=== PATIENT | male | born 1950 | race Caucasian/White ===

== ENCOUNTER 2016-10-07 03:17 | Emergency (ER) | payer MEDICARE ==
[~2016-10-07] VITALS: Ht 175.3 cm; Wt 81.6 kg
[~2016-10-07 03:17] MED LIST: ACET325T9 PO; ALFU10TA3 PO; ALPR1TAB6 PO; AMIT50TA PO; ASPI81TA2 PO; CALC600T4 PO; CHOL400T4 PO; EZET1TAB19 PO; FISH1CAP PO; FLUT16SP NS; FLUT9.9S NS; GLIP5TAB10 PO; GLUC100018 PO; METF500T4 PO; MULT-245 PO; OMEP20CA5 PO; PANT40TA5 PO; RANI150T2 PO; SIMV40TA3 PO; ZOLP5TAB PO
[2016-10-07] MEDS ORDERED: KETOROLAC TROMETHAMINE 30 MG/ML INJ. IV ONE (04:00)
[2016-10-07] MEDS ORDERED: IV NORMAL SALINE 1000ML BAG 1,000 ML IV SCH (04:00)
[2016-10-07] MEDS ORDERED: fentaNYL PF VIAL 100 MCG/2 ML VIAL IV PRN (04:00)
[2016-10-07 04:30] VITALS: BP 147/82
[2016-10-07 04:30] LABS: CALCIUM 9.4 mg/dL (8.5-10.1); GFR 74.5; POTASSIUM 3.7 mmol/L (3.5-5.1)
--- NOTE | 2016-10-07 04:41 | PHYS DOC ---
Past Medical History Past Medical History: Diabetes-Type II, GERD Additional Past Medical Histor: BPH, prostate infection Past Surgical History: Cholecystectomy Additional Past Surgical Histo: hernia Alcohol Use: None Drug Use: None Adult General Chief Complaint Chief Complaint: DIARRHEA HPI HPI Patient is a 66 year old male who presents with bilateral lower abdominal pain that is crampy and diffuse associated with nonbloody diarrhea. States he has multiple episodes of small volume diarrhea. Symptoms started approx 0400 yesterday. Denies f/c, n/v, dysuria, bloody stools. Currently taking cipro for prostate infection, but has prior tolerated cipro without this side effect. Review of Systems Review of Systems Constitutional: Denies fever or chills [] Eyes: Denies change in visual acuity, redness, or eye pain [] HENT: Denies nasal congestion or sore throat [] Respiratory: Denies cough or shortness of breath [] Cardiovascular: No additional information not addressed in HPI [] GI: Denies nausea, vomiting, bloody stools [] : Denies dysuria or hematuria [] Musculoskeletal: Denies back pain or joint pain [] Integument: Denies rash or skin lesions [] Neurologic: Denies headache, focal weakness or sensory changes [] Endocrine: Denies polyuria or polydipsia [] Current Medications Current Medications Current Medications Medications (Trade) Dose Ordered Sig/Devang Start Time Stop Time Status Last Admin Dose Admin Fentanyl Citrate 50 mcg 50 mcg PRN Q15MIN PRN 10/07/16 04:00 10/07/16 05:00 DC Ketorolac Tromethamine (Toradol) 15 mg 1X ONCE 10/07/16 04:00 10/07/16 04:04 DC 10/07/16 04:21 15 MG Sodium Chloride (Iv Sodium Chloride 0.9% 1000ml Bag) 1,000 ml @ 1,000 mls/hr Q1H 10/07/16 04:00 10/07/16 04:59 DC 10/07/16 04:21 1,000 MLS/HR Allergies Allergies Allergies Coded Allergies Type Severity Reaction Last Updated Verified No Known Drug Allergies 06/09/13 No Physical Exam Physical Exam Constitutional: Well developed, well nourished, no acute distress, non-toxic appearance. [] HENT: Normocephalic, atraumatic, bilateral external ears normal, oropharynx moist, nose normal. [] Eyes: PERRLA, EOMI. [] Neck: Normal range of motion, supple. [] Cardiovascular:Heart rate regular rhythm [] Lungs & Thorax: Bilateral breath sounds clear to auscultation [] Abdomen: Bowel sounds normal, soft, mild bilateral lower abdominal tenderness, no guarding or rebound. [] Skin: Warm, dry, no erythema, no rash. [] Back: Normal range of motion. [] Extremities: No tenderness, ROM intact. [] Neurologic: Alert and oriented X 3, normal motor function, normal sensory function, no focal deficits noted. [] Psychologic: Affect normal, judgement normal, mood normal. [] Current Patient Data Vital Signs Vital Signs Date Time Temp Pulse Resp B/P Pulse Ox O2 Delivery O2 Flow Rate FiO2 10/07/16 04:30 62 16 147/82 95 Room Air 10/07/16 03:45 97.7 97.7 Lab Values Laboratory Tests Test 10/07/16 03:45 Sodium Level 138mmol/L (136-145) Potassium Level 3.7mmol/L (3.5-5.1) Chloride Level 103mmol/L (98-107) Carbon Dioxide Level 24mmol/L (21-32) Anion Gap 11 (6-14) Blood Urea Nitrogen 18mg/dL (8-26) Creatinine 1.0mg/dL (0.7-1.3) Estimated GFR (Cockcroft-Gault) 74.5 Glucose Level 192mg/dL (70-99) H Calcium Level 9.4mg/dL (8.5-10.1) Laboratory Tests 10/07/16 03:45 Course & Med Decision Making Course & Med Decision Making Pertinent Labs and Imaging studies reviewed. (See chart for details) Laboratory evaluation is unremarkable. He is feeling better after medications and would like to go home. Return precautions given. He understands and agrees with plan. Dragon Disclaimer Dragon Disclaimer This electronic medical record was generated, in whole or in part, using a voice recognition dictation system. Departure Departure Impression: Primary Impression: Diarrhea Additional Impression: Abdominal pain Disposition: HOME, SELF-CARE Condition: STABLE Referrals: ELLIOTT FRANCE MD (PCP) Patient Instructions: Diet for Diarrhea, Adult Additional Instructions: Take tylenol or ibuprofen as needed for pain. Take Imodium as needed for loose stools. Follow up with your primary care doctor. Return for any concerns. Problem Qualifiers Primary Impression: Diarrhea Diarrhea type: unspecified type Qualified Code: R19.7 - Diarrhea, unspecified Additional Impression: Abdominal pain Abdominal location: lower abdomen, unspecified Qualified Code: R10.30 - Lower abdominal pain, unspecified Sanjana LUJAN MD Oct 07, 2016 04:41
== END 2016-10-07 04:45 | disposition home or self-care (01) ==
LOC: ER 03:17
DX: R10.31 Right lower quadrant pain (principal); R10.32 Left lower quadrant pain; R19.7 Diarrhea, unspecified; E11.9 Type 2 diabetes mellitus without complications; K21.9 Gastro-esophageal reflux disease without esophagitis; N40.0 Benign prostatic hyperplasia without lower urinary tract symptoms; Z90.49 Acquired absence of other specified parts of digestive tract
CPT/HCPCS: 36415; 80048; 96374; 99284; J1885; J7030; 96361

== ENCOUNTER → 2017-01-11 | Outpatient (CLI) | payer MEDICARE ==
[~2017-01-11] MED LIST changes: +ASPI-630 PO; -ASPI81TA2 PO; -CHOL400T4 PO; +CHOL400T55 PO; -EZET1TAB19 PO; +EZET1TAB41 PO
--- NOTE | 2017-01-11 11:24 | KCIC ---
C-SPINE 2 OR 3 VIEWS Clinical Indication: Neck pain with radiculopathy down right arm x2-3 months. Comparison: None. Findings: There is straightening of normal cervical lordosis that may be positional or due to muscle spasm. There is disc space narrowing and degenerative endplate spurring and sclerosis of C6/C7. There is no evidence of acute fracture or acute malalignment. The lateral masses appear symmetric. Superimposition of dentition limits evaluation. There is bilateral bony neural foraminal narrowing at C3/C4, C4/C5, and C5/C6 that is worse on the right. Neural foraminal narrowing on the right at C4/C5 appears to be severe. No prevertebral soft tissue swelling is identified. Lung apices are clear. IMPRESSION: 1. No acute findings. 2. Bony neural foraminal narrowing of C3/C4, C4/C5, and C5/C6. 3. Degenerative spondylosis of C6/C7. Electronically signed by: Elmer Blackwell MD (01/11/2017 11:21 AM) [id number]
== END | disposition home or self-care (01) ==
LOC: KCIC 10:28
PROVIDERS: ATTEND Family Medicine
DX: M47.892 Other spondylosis, cervical region (principal)
CPT/HCPCS: 72050

== ENCOUNTER → 2017-01-20 | Outpatient (CLI) | payer MEDICARE ==
--- NOTE | 2017-01-20 15:44 | KCIC ---
EXAM: Cervical spine MRI without contrast. HISTORY: Neck pain and right upper extremity radiculopathy. TECHNIQUE: Multiplanar, multisequence magnetic resonance imaging of the cervical spine was performed without contrast. COMPARISON: Radiographs dated 01/11/2017. FINDINGS: There is slight reversal of cervical lordosis. There is slight retrolisthesis of C3 on C4 and C4 on C5 and C6 on C7. There is degenerative endplate remodeling and spurring at all levels, described in detail below. There is deformation of the cervical spinal cord at multiple levels due to central canal stenosis, also described below. There is suspected mild congenital narrowing of the cervical central canal. No suspicious osseous lesion is seen. There are few small endplate Schmorl's nodes. The skull base and posterior fossa are unremarkable. At C2-C3, there is a disc bulge with posterior central annular tear. There is moderate right facet arthropathy. There is mild right foraminal stenosis. There is minimal central canal stenosis measuring 9.5 mm in anteroposterior dimension. At C3-C4, there is a broad-based posterior central to left paracentral disc protrusion with slight superior and inferior extrusion superimposed on a disc bulge and endplate osteophytosis. There is left greater than right uncovertebral arthropathy. There is moderate to severe right and severe left foraminal stenosis. There is deformation of the ventral aspect of the spinal cord with moderate to severe central canal stenosis measuring 6.0 mm in anterior posterior dimension. At C4-C5, there is a broad-based posterior central disc protrusion with slight superior and inferior extrusion superimposed on a disc bulge and endplate osteophytosis. There is bilateral uncovertebral arthropathy. There is moderate right and severe left foraminal stenosis. There is deformation of the spinal cord with severe central canal stenosis measuring 5.4 mm in anterior posterior dimension. There is suggestion of focal T2 hyperintensity within the spinal cord at this level on sagittal images. This is not confirmed on axial images and is likely artifactual or due to a tiny focus of myelomalacia. At C5-C6, there is a broad-based right paracentral disc protrusion with slight inferior extrusion and there are bilateral foraminal to extraforaminal disc osteophyte complexes superimposed on a disc bulge and endplate osteophytosis. There is mild bilateral facet arthropathy. There is uncovertebral arthropathy. There is severe bilateral foraminal stenosis. There is deformation of the spinal cord with moderate to severe central canal stenosis measuring 6.8 mm in anterior posterior dimension. At C6-C7, there is a posterior central disc protrusion with slight inferior extrusion superimposed on a disc bulge and endplate osteophytosis. There is mild to moderate bilateral facet arthropathy. There is uncovertebral arthropathy. There is mild right and moderate left foraminal stenosis. There is deformation of the spinal cord with moderate to severe central canal stenosis measuring 6.7 mm in anterior posterior dimension. IMPRESSION: 1. Multilevel degenerative change throughout the cervical spine, described in detail above. This results in significant foraminal and central canal stenosis at the majority of the cervical levels. There may be a focus of myeloma malacia within the cervical spinal cord slightly inferior to C4-C5. 2. 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 Electronically signed by: Michelle Mendez MD (01/20/2017 3:41 PM) [id number]
== END | disposition home or self-care (01) ==
LOC: KCIC MRI 14:29
PROVIDERS: ATTEND Nurse Practitioner Family
DX: M48.02 Spinal stenosis, cervical region (principal); M12.88 Other specific arthropathies, not elsewhere classified, other specified site
CPT/HCPCS: 72141

== ENCOUNTER → 2017-03-15 | Outpatient (CLI) | payer MEDICARE ==
[~2017-03-15] MED LIST changes: +FINA5TAB4 PO; +NAPH15DR56 OU; +NAPR500T4 PO
--- NOTE | 2017-03-15 15:05 | EKG ---
[facility] [address] [place] [id number] Test Date: 2017-03-15 Test Time: 15:03:27 Pat Name: NATE BLANKENSHIP Department: Room: Gender: Management Specialist: : [id number] Requested By: LEONARD SHIN Order Number: [id number] Reading MD: Ok Meza Measurements Intervals [place] Rate: 77 P: 58 OK: 162 QRS: 51 QRSD: 86 T: 49 QT: 360 QTc: 409 Interpretive Statements SINUS RHYTHM QRS(T) CONTOUR ABNORMALITY CONSIDER ANTEROSEPTAL MYOCARDIAL DAMAGE POSSIBLY ABNORMAL ECG Electronically Signed On 03-18-2017 9:29:38 CDT by Ok Meza
[2017-03-15 15:21] LABS: BASO % 1 % (0-3); EOS % 1 % (0-3); HEMATOCRIT 47.9 % (39.0-53.0); HEMOGLOBIN 16.4 g/dL (13.0-17.5); LYMPH # 1.6 x10^3/uL (1.0-4.8); LYMPH % 19 % (24-48); MEAN CORPUSCULAR HEMOGLOBIN 29 pg (25-35); MEAN CORPUSCULAR HGB CONC 34 g/dL (31-37); MEAN CORPUSCULAR VOLUME 86 fL (79-100); MONO % 11 % (0-9); NEUT % 69 % (31-73); PLATELET COUNT 172 x10^3/uL (140-400); RED BLOOD COUNT 5.58 x10^6/uL (4.30-5.70); RED CELL DISTRIBUTION WIDTH 15.2 % (11.5-14.5); WHITE BLOOD COUNT 8.4 x10^3/uL (4.0-11.0)
[2017-03-15 15:34] LABS: ALBUMIN 3.9 g/dL (3.4-5.0); ALBUMIN/GLOBULIN RATIO 1.1 (1.0-1.7); CALCIUM 9.8 mg/dL (8.5-10.1); CREATININE 1.3 mg/dL (0.7-1.3); GFR 54.9; POTASSIUM 4.2 mmol/L (3.5-5.1); TOTAL BILIRUBIN 1.1 mg/dL (0.2-1.0); TOTAL PROTEIN 7.4 g/dL (6.4-8.2)
== END | disposition home or self-care (01) ==
LOC: SURGPAT 15:21
PROVIDERS: ATTEND Neurological Surgery
DX: Z01.818 Encounter for other preprocedural examination (principal); E78.5 Hyperlipidemia, unspecified; M48.02 Spinal stenosis, cervical region; M54.12 Radiculopathy, cervical region
CPT/HCPCS: 36415; 80053; 83036; 85025; 87641; 93005

== ENCOUNTER → 2017-06-25 | Outpatient (CLI) | payer MEDICARE, OTHER | END | disposition home or self-care (01) | LOC: KCIC 10:11 | DX: M50.323 Other cervical disc degeneration at C6-C7 level (principal); M25.78 Osteophyte, vertebrae; Z98.1 Arthrodesis status; Z98.890 Other specified postprocedural states | CPT/HCPCS: 72040 ==

== ENCOUNTER → 2017-09-14 | Outpatient (CLI) | payer MEDICARE, OTHER | END | disposition home or self-care (01) | LOC: KCIC 14:45 | DX: M19.042 Primary osteoarthritis, left hand (principal); E78.5 Hyperlipidemia, unspecified; E11.9 Type 2 diabetes mellitus without complications | CPT/HCPCS: 73140 ==

== ENCOUNTER → 2018-06-13 | Day surgery (SDC) | payer MEDICARE, OTHER ==
[~2018-06-13] MED LIST changes: +IV RINGERS,LACTATED 1000ML 1,000 ML IV SCH; +METF500T16 PO; -METF500T4 PO; +METH-38 PO; +NAPR-514 PO; -NAPR500T4 PO; +OXYC1TAB7 PO; +PROPOFOL 40 ML IV ONE
[2018-06-13 11:15] VITALS: BP 114/68
== END ==
LOC: ENDOS 08:46
PROVIDERS: ATTEND Internal Medicine Gastroenterology
DX: Z12.11 Encounter for screening for malignant neoplasm of colon (principal); K64.0 First degree hemorrhoids; Z86.010 Personal history of colon polyps
CPT/HCPCS: G0105; J2704; 45378

== ENCOUNTER → 2021-05-07 | Outpatient (CLI) | payer MEDICARE, OTHER ==
[2018-06-13 11:15] VITALS: BP 114/68
[~2021-05-07] MED LIST changes: -ALFU10TA3 PO; +ALFU10TA4 PO; -CALC600T4 PO; +CALC600T60 PO; -IV RINGERS,LACTATED 1000ML 1,000 ML IV SCH; -PANT40TA5 PO; +PANT40TA77 PO; -PROPOFOL 40 ML IV ONE; +SIMV40TA18 PO; -SIMV40TA3 PO
--- NOTE | 2021-05-07 11:37 | KCIC ---
EXAM: Lumbar spine MRI without contrast. HISTORY: Back pain. Left lower extremity radiculopathy. TECHNIQUE: Multiplanar, multisequence magnetic resonance imaging of the lumbar spine was performed wi thout contrast. COMPARISON: None. FINDINGS: There is mild lumbar scoliosis. There is 3 mm retrolisthesis of L2 on L3. There is 2 mm gra de 1 anterolisthesis of L5 on S1. There is a suspected left pars interarticularis defect at this leve l. There is multilevel endplate remodeling. There is disc space narrowing predominantly at L2-L3 and L5-S1. There is disc desiccation multiple levels. The conus terminates at the superior aspect of L1. There is no suspicious osseous lesion. There is no acute or subacute fracture. There are simple bilat eral renal cysts, largest which is seen on the right measuring 3.9 cm. Follow-up is not routinely per formed for simple cysts. At L1-L2, there is a mild disc bulge and endplate remodeling. There is mild left facet arthropathy. T here is mild left greater than right foraminal stenosis. At L2-L3, there is a broad-based right lateral recess to extra foraminal disc protrusion with slight superior and inferior extrusion superimposed on a right lateral predominant disc bulge and endplate o steophytosis. There is mild pleural facet arthropathy. There is slight retrolisthesis. There is mild right foraminal stenosis with abutment of the exiting right L2 nerve root. There is mild central rudi l stenosis and narrowing of the right lateral recess with abutment the traversing right nerve roots. At L3-L4, there is a broad-based left paracentral to extra foraminal disc protrusion with slight supe rior and inferior extrusion. There is also a right foraminal to extra foraminal disc protrusion with slight superior and inferior extrusion. These are superimposed on a disc bulge and endplate remodelin g. There is mild left facet arthropathy. There is moderate bilateral foraminal stenosis with abutment the exiting L3 nerve roots. There is mild to moderate central canal stenosis and effacement of the l eft lateral recess with deviation of the traversing left nerve roots. At L4-L5, there is a disc bulge. There is mild bilateral facet arthropathy. There is mild bilateral f oraminal stenosis. At L5-S1, there is a broad-based right paracentral to foraminal disc protrusion superimposed on a dis c bulge and endplate remodeling. There is mild bilateral facet arthropathy. There is minimal grade 1 anterolisthesis. There is mild right foraminal stenosis. There is narrowing of the right lateral rece ss and abutment of the traversing right nerve roots. IMPRESSION: 1. Multilevel degenerative change involving the lumbar spine, described in detail above. This results in mild left greater than right foraminal stenosis at L1-L2, mild right foraminal and central canal stenosis and narrowing of the right lateral recess at L2-L3, moderate bilateral foraminal and mild to moderate central canal stenosis and narrowing of the left lateral recess at L3-L4, mild bilateral fo raminal stenosis at L4-L5, and mild right foraminal stenosis with narrowing of the right lateral rece ss at L5-S1. 2. Mild scoliosis and multilevel listhesis. There is a suspected left pars defect at L5-S1. Electronically signed by: Michelle Mendez MD (05/07/2021 11:35 AM) [id number]
--- NOTE | 2021-05-07 12:20 | KCIC ---
EXAM: Pelvis and left hip, 2 views. HISTORY: Pain. COMPARISON: None. FINDINGS: A frontal view of the pelvis and frog-leg view of the left hip are obtained. There is no fr acture, dislocation or subluxation. There is degenerative change involving the lower lumbar spine. IMPRESSION: No acute osseous finding. Electronically signed by: Michelle Mendez MD (05/07/2021 12:17 PM) [id number]
== END ==
LOC: KCIC MRI 10:00
PROVIDERS: ATTEND Family Medicine
DX: M47.817 Spondylosis without myelopathy or radiculopathy, lumbosacral region (principal); M51.27 Other intervertebral disc displacement, lumbosacral region; M48.07 Spinal stenosis, lumbosacral region; M48.8X7 Other specified spondylopathies, lumbosacral region; M43.16 Spondylolisthesis, lumbar region; N28.1 Cyst of kidney, acquired; M25.552 Pain in left hip; R29.898 Other symptoms and signs involving the musculoskeletal system; M54.42 Lumbago with sciatica, left side
CPT/HCPCS: 72148; 73501

== ENCOUNTER → 2021-05-23 | Outpatient (CLI) | payer MEDICARE ==
[2018-06-13 11:15] VITALS: BP 114/68
--- NOTE | 2021-05-23 14:43 | KCIC ---
PQRS Compliance Statement: One or more of the following individualized dose reduction techniques were utilized for this examinat ion: 1. Automated exposure control 2. Adjustment of the mA and/or kV according to patient size 3. Use of iterative reconstruction technique CT NECK SOFT TISSUE WITHOUT CONTRAST, CT MAXILLOFACIAL WITHOUT CONTRAST 05/23/2021 9:11 AM Indication: Goiter. Swelling of the right side of the neck. Chronic sinusitis. COMPARISON: None available. TECHNIQUE: Multiple axial CT images of the neck and maxillofacial structures obtained without intrave nous contrast. Coronal and sagittal reformats are provided. FINDINGS: No suspicious abnormality identified involving the visualized portions of the brain parenchyma and po sterior fossa. The skull base is normal. Mild mucosal thickening of the right maxillary sinus. Nasal septum is deviated to the right by 4 mm. Ostiomeatal units are widely patent. Skull base is intact. M ild mucosal thickening of the left maxillary sinus. Orbital contents appear normal. The sella turcica and cavernous sinus regions appear intact. The mastoid air cells are well aerated. The fossa of Rosenmuller is normal. Nasopharynx is normal in appearance. The parotid space contents a nd singer back tender space contents appear intact. The parapharyngeal spaces are normal. The submandibular contents appear intact. Oral cavity, floor of mouth and sublingual space appear normal.. Oropharynx is normal in appearance. Tonsilloliths identified within the left oropharynx. The epiglot tis, aryepiglottic folds, and piriform sinuses are normal. The vallecula appears normal. The larynx and trachea are normal. The thyroid gland is normal in appearance. The carotid space contents are normal. No pathologically enlarged cervical lymph nodes. The perivertebral space contents are normal. The supraclavicular regions appear intact. The visualiz ed mediastinum is normal. The visualized lungs appear clear. There is laminectomy decompression from C3 through C6 with posterior fusion with facet screws and cynthia l rods from C3 through C7. Is residual spinal canal stenosis identified at C6-C7. IMPRESSION: No pathologically enlarged cervical lymph nodes. No suspicious laryngeal or pharyngeal mass. Posterior fusion from C3 through C7. There is residual spinal canal stenosis at C6-C7. Thyroid gland is normal in appearance. Mild mucosal thickening of the maxillary sinuses. Electronically signed by: Amanda Gillette MD (05/23/2021 2:40 PM) [id number]
== END ==
LOC: KCIC CT 09:07
PROVIDERS: ATTEND Otolaryngology
DX: M48.02 Spinal stenosis, cervical region (principal); J34.89 Other specified disorders of nose and nasal sinuses; J32.4 Chronic pansinusitis; E05.20 Thyrotoxicosis with toxic multinodular goiter without thyrotoxic crisis or storm
CPT/HCPCS: 70486; 70490